=== PATIENT | male | born 1995 | race American Indian/Alaskan Native ===

== ENCOUNTER 2017-07-11 07:55 | Emergency (ER) | payer SELFPAY ==
[2017-07-11 08:29] VITALS: BP 119/74
[2017-07-11] MEDS ORDERED: MOTRIN PO ONE (10:34)
--- NOTE | 2017-07-11 10:34 | Emergency Department Report ---
Upper Extremity - HPI Chief Complaint: Shoulder Injury Stated Complaint: LEFT SHOULDER PAIN Time Seen by Provider: 07/11/17 10:00 Upper Extremity: Left Shoulder (pain after falling) Occurred When: 1 Day Mechanism: Fall Severity: severe (8 out of 10) Symptoms: Yes Pain with Movement (left shoulder), Yes Limited Range of Movement ( left shoulder), No Deformity, No Numbness, No Weakness, No Swelling, No Bruising/Ecchymosis, No Laceration or Abrasion Other History: Patient reports that he injured his left shoulder last night when he fell. He said he hadn't taken it at a 10 and it's throbbing and did not take any pain medication. Force of movement better with rest then. Denies any breaking the skin. Denies any medical problems. Denies any head injury. ED Review of Systems ROS: Stated complaint: LEFT SHOULDER PAIN Other details as noted in HPI Comment: All other systems reviewed and negative Constitutional: no symptoms reported Respiratory: no symptoms reported Cardiovascular: denies: chest pain, palpitations, dyspnea on exertion, edema, syncope, paroxysmal nocturnal dyspnea Gastrointestinal: denies: nausea, vomiting Musculoskeletal: arthralgia. denies: back pain, joint swelling, myalgia Skin: denies: rash Neurological: denies: headache, numbness, paresthesias, confusion ED Past Medical Hx - Past Medical History Previous Medical History?: No - Surgical History Past Surgical History?: No - Family History Family history: no significant - Social History Smoking Status: Current Some Day Smoker Substance Use Type: Alcohol Other Social History: Single - Medications Home Medications: Home Medications Medication Instructions Recorded Confirmed Last Taken Type Acetaminophen/Codeine [Tylenol 1 tab PO Q6H PRN #15 tab 07/11/17 Unknown Rx /Codeine # 3 tab] Ibuprofen [Motrin] 600 mg PO Q8H PRN #15 tablet 07/11/17 Unknown Rx Upper Extremity Exam - Exam General: Vital signs noted. No distress. Alert and acting appropriately. 22-year-old male well-nourished well-developed in no acute distress Head and Torso: No HEENT Abnormality, No Neck Tenderness, No Chest/Lungs Abnormality, No Abdominal Tenderness, No Back Tenderness Shoulder Exam: Yes Shoulder Tenderness ( No tenting of skin), Yes Normal Range of Motion in Shoulder (range of motion to both shoulder but left shoulder with significant pain when he tries to move shoulder.), Yes AC Joint Tenderness ( tender to palpate.), No Clavicle Tenderness, No Shoulder Deformity (no tenting of skin noted) Arm Exam: No Arm/Humerus Tenderness, No Arm Deformity Elbow: Yes Normal Range of Motion in Elbow, No Elbow Tenderness, No Elbow Deformity Forearm: No Forearm Tenderness, No Forearm Deformity, No Pain with Pronation, No Pain with Supination Wrist: Yes Normal ROM in Wrist, No Wrist Tenderness, No Wrist Deformity, No Snuffbox Tenderness, No Pain with Axial Thumb Compression Hand: Yes Normal ROM in Digit(s), No Hand Tenderness, No Hand Deformity, No Digit Tenderness, No Digit(s) Deformity, No Tendon Dysfunction CMS Exam: Yes Normal Distal Pulses, Yes Normal Capillary Refill, Yes Normal Distal Sensation, No Broken Skin ED Course Vital Signs 07/11/17 08:22 Temperature 97.6 F Pulse Rate 63 Respiratory 18 Rate Blood Pressure 119/74 O2 Sat by Pulse 100 Oximetry - Reevaluation(s) Reevaluation #1: 07/11/17 11:15 Received Motrin 800 mg by mouth in emergency room for pain. - Orthopedic Splinting/Casting Injury #1 Side: left Upper Extremity Injury Location: shoulder Upper Extremity Immobilizer: sling/shoulder immobilize Additional Comments: good neurovascular check status post shoulder immobilizer ED Medical Decision Making - Radiology Data Radiology results: report reviewed X-ray of left shoulder reveals patient with no articular abnormality. No fracture dislocation. Suspicion of grade 3 achromia on. If clinically indicated MRI scan recommended to rule out possibility of rotator cuff injury. - Medical Decision Making D course: This is a 22-year-old male here after falling and hurting his left shoulder. He is complaining of left shoulder pain without any radiation. Patient reports pain 8 out of 10. He received Motrin 800 mg emergency room which helped his pain. X-ray of left shoulder shows possibility of grade 3 achromia and. No fracture or dislocation seen. Radiologist is recommended MRI outpatient follow-up for possible rotator cuff injury. Patient and had a shoulder immobilizer placed with good neurovascular check post-immobilizer. I discussed with him diagnosis and treatment plan and he needs to follow-up with orthopedic doctor. He voiced understanding. I also discussed with him that he needs to rest for at least 3 days and call orthopedic doctor today to schedule an appointment. Discharge home with prescription for Motrin and Tylenol No. 3. Critical care attestation.: If time is entered above; I have spent that time in minutes in the direct care of this critically ill patient, excluding procedure time. ED Disposition Clinical Impression: Abnormal prominence of acromion, Arthralgia of left shoulder region, Left anterior shoulder pain Accidental fall Qualifiers: Encounter type: initial encounter Qualified Code(s): W19.XXXA - Unspecified fall, initial encounter Disposition: DC- TO HOME OR SELFCARE Is pt being admited?: No Does the pt Need Aspirin: No Condition: Stable Instructions: Acromioclavicular Separation (ED), Arthralgia (ED), RICE Therapy (ED) Additional Instructions: Please follow up with primary care as recommended Increase fluid intake Take medication as prescribed . please do not drive or operate heavy machinery while taking Tylenol No. 3 as this medication causes Referred to discharge instruction on splint care. Referred to discharge instruction in Rice therapy. These follow-up with orthopedic doctor as instructed. Prescriptions: Acetaminophen/Codeine [Tylenol /Codeine # 3 tab] 1 tab PO Q6H PRN #15 tab PRN Reason: Pain, Moderate (4-6) Ibuprofen [Motrin] 600 mg PO Q8H PRN #15 tablet PRN Reason: Pain Referrals: PRIMARY CAREMD [Primary Care Provider] - 3-5 Days [facility] [place]] - 3-5 Days TRISTA GOMEZ MD [Staff Physician] - 07/15/17 Forms: Work/School Release Form(ED), Accompanied Note
--- NOTE | 2017-07-11 10:53 | XRay Report ---
Left shoulder 3 views: History: Fell on left shoulder pain. Findings: No articular abnormality. No fracture or dislocation. Suspicion of grade 3 acromion. If clinically indicated MRI scan recommended to rule out possibility of rotator cuff injury. Impression: Findings as detailed above.
== END 2017-07-11 11:33 | disposition home or self-care (01) ==
LOC: ED 07:55
DX: M25.512 Pain in left shoulder (principal); F17.210 Nicotine dependence, cigarettes, uncomplicated; W18.30XA Fall on same level, unspecified, initial encounter; Y93.89 Activity, other specified; Y92.89 Other specified places as the place of occurrence of the external cause; Y99.8 Other external cause status
CPT/HCPCS: 99283